=== PATIENT | male | born 1950 | race Caucasian/White ===

== ENCOUNTER 2019-03-22 15:12 | Emergency (ER) | payer BC ==
[~2019-03-22] VITALS: Ht 167.6 cm; Wt 86.4 kg
[2019-03-22 15:40] VITALS: BP 148/89
== END 2019-03-22 16:53 | disposition home or self-care (01) ==
LOC: ER 15:13
DX: S01.111A Laceration without foreign body of right eyelid and periocular area, initial encounter (principal); R05 Cough; W18.39XA Other fall on same level, initial encounter; Y93.89 Activity, other specified; Y92.89 Other specified places as the place of occurrence of the external cause; Y99.8 Other external cause status
CPT/HCPCS: 12013; 99284